=== PATIENT | female | born 2000 | race Caucasian/White ===

== ENCOUNTER 2020-04-04 20:05 | Emergency (ER) | payer OTHER ==
[~2020-04-04] VITALS: Ht 157.5 cm; Wt 96.2 kg
[2020-04-04 20:16] VITALS: Ht 157.5 cm; Wt 96.2 kg
[2020-04-04 21:50] VITALS: BP 123/76
== END 2020-04-04 21:50 | disposition home or self-care (01) ==
LOC: ED 20:05
DX: M54.5 Low back pain (principal); M54.6 Pain in thoracic spine
CPT/HCPCS: J1885